=== PATIENT | male | born 1995 | race Caucasian/White ===

== ENCOUNTER 2020-03-16 10:32 | Emergency (ER) | payer BC ==
--- NOTE | 2020-03-16 11:01 | ERPHSYRPT ---
- History of Present Illness Time Seen by Provider: 03/16/20 10:48 Source: patient, police Exam Limitations: no limitations Patient Subjective Stated Complaint: Medical Clearance for skilled nursing. Triage Nursing Assessment: Patient ambulated back to ED and transferred self to bed. Patient A+O X3. Patient's skin pink, warm and dry. Patient brought to ED via police for medical clearance. Police state patient's temp upon entering skilled nursing was 101.0 temporal and patient could not be accepted without medical clearance. Patient denies pain or discomfort. Patient denies being under influence of drugs or alcohol. Physician History: 25 yo wm arrested for domestic dispute presented w a fever at skilled nursing per temperal scanner. Pt denies cough/ST/N/V/D/coryza/otalgia/MARTINEZ/abdominal pain/dysuria/ hematuria. He was afebrile upon ER presentation. Timing/Duration: today Fever Severity: gone Fever Therapy [employer]: none Associated Symptoms: denies symptoms Allergies/Adverse Reactions: No Known Drug Allergies Allergy (Unverified 03/16/20 10:36) Home Medications: No Reportable Medications [No Reported Medications] 03/16/20 [History] Hx Influenza Vaccination/Date Given: No Hx Pneumococcal Vaccination/Date Given: No Immunizations Up to Date: Yes Travel Risk - International Travel Have you traveled outside of the country in past 3 weeks: No Have you or anyone close to you been diagnosed with or: No Do your reside in a community with a known COVID-19 case?: No - Coronavirus Screening Has patient experienced Coronavirus symptoms: No - Review of Systems Constitutional: No Symptoms Eyes: No Symptoms Ears, Nose, & Throat: No Symptoms Respiratory: No Symptoms Cardiac: No Symptoms Abdominal/Gastrointestinal: No Symptoms Genitourinary Symptoms: No Symptoms Musculoskeletal: No Symptoms Skin: No Symptoms Neurological: No Symptoms Psychological: No Symptoms Endocrine: No Symptoms Hematologic/Lymphatic: No Symptoms Immunological/Allergic: No Symptoms - Past Medical History Pertinent Past Medical History: No Neurological History: No Pertinent History ENT History: No Pertinent History Cardiac History: No Pertinent History Respiratory History: No Pertinent History Endocrine Medical History: No Pertinent History Musculoskeletal History: No Pertinent History GI Medical History: No Pertinent History History: No Pertinent History Psycho-Social History: No Pertinent History Male Reproductive Disorders: No Pertinent History - Past Surgical History Past Surgical History: No Neuro Surgical History: No Pertinent History Cardiac: No Pertinent History Respiratory: No Pertinent History Gastrointestinal: No Pertinent History Genitourinary: No Pertinent History Musculoskeletal: No Pertinent History Male Surgical History: No Pertinent History - Social History Smoking Status: Never smoker Exposure to second hand smoke: Yes Drug Use: none Patient Lives Alone: Yes Significant Family History: no pertinent family hx - Nursing Vital Signs Nursing Vital Signs: Initial Vital Signs Temperature 99.0 F 03/16/20 10:37 Pulse Rate 104 H 03/16/20 10:37 Respiratory Rate 18 03/16/20 10:37 Blood Pressure 122/84 03/16/20 10:37 O2 Sat by Pulse Oximetry 97 03/16/20 10:37 Pain Scale Pain Intensity 0 - Physical Exam General Appearance: no apparent distress Eye Exam: PERRL/EOMI, eyes nml inspection ENT Exam: normal ENT inspection, no apparent trauma, hearing grossly normal, TMs normal, pharynx normal, No nasal congestion, No nasal drainage Neck Exam: normal inspection, non-tender, supple, full range of motion, trachea midline Respiratory Exam: normal breath sounds, lungs clear, no respiratory distress, no accessory muscle use Cardiovascular/Chest Exam: tachycardia Gastrointestinal/Abdominal Exam: soft, non tender, no distention, no mass, no guarding, no ecchymosis, no organomegaly, no pulsatile mass, normal bowel sounds Rectal Exam: deferred Extremity Exam: non-tender, normal range of motion, normal inspection, normal capillary refill Neurologic Exam: alert, oriented x 3, cooperative, film color tester II-XII nml as tested, normal mood/affect, nml cerebellar function, nml station & gait, sensation nml, motor deficits Skin Exam: normal color, warm, dry Lymphatic: No adenopathy, No axilla node tender (L) SpO2 Interpretation: normal SpO2: 97 O2 Delivery: Room Air - Course Nursing assessment & vital signs reviewed: Yes Ordered Tests: Active Orders 24 hr Category Date Time Status CHEST 2 VIEWS (PA AND LAT) Stat Exams 03/16/20 10:49 Completed CBC W DIFF Stat Lab 03/16/20 11:00 Completed CULTURE,URINE Stat Lab 03/16/20 10:52 Received UA W/RFX UR CULTURE Stat Lab 03/16/20 10:52 Completed Medication Summary Discontinued Medications Generic Name Dose Route Start Last Admin Trade Name Freq PRN Reason Stop Dose Admin Penicillin G Benzathine 1.2 mu 03/16/20 12:03 03/16/20 12:06 Bicillin L-A 1.2 Mu/2ml Syringe IM 03/16/20 12:04 1.2 mu STAT ONE Administration Penicillin G Benzathine Confirm 03/16/20 12:04 Bicillin L-A 1.2 Mu/2ml Syringe Administered 03/16/20 12:05 Dose 1.2 mu IM .STK-MED ONE Lab/Rad Data: Laboratory Result Diagrams 03/16/20 11:00 Laboratory Results 03/16/20 03/16/20 03/16/20 Range/Units 11:00 11:00 10:52 WBC 12.9 H (4.0-10.5) K/mm3 RBC 5.49 (4.1-5.6) M/mm3 Hgb 16.8 (12.5-18.0) gm/dl Hct 49.2 (42-50) % MCV 89.6 (78-100) fl MCH 30.6 (26-32) pg MCHC 34.1 (32-36) g/dl RDW 13.0 (11.5-14.0) % Plt Count 277 (150-450) K/mm3 MPV 9.7 (7.5-11.0) fl Gran % 85.0 H (36.0-66.0) % Eos # (Auto) 0.10 (0-0.5) Absolute Lymphs (auto) 1.09 (1.0-4.6) Absolute Monos (auto) 0.72 (0.0-1.3) Lymphocytes % 8.4 L (24.0-44.0) % Monocytes % 5.6 (0.0-12.0) % Eosinophils % 0.8 (0.00-5.0) % Basophils % 0.2 (0.0-0.4) % Absolute Granulocytes 10.98 H (1.4-6.9) Basophils # 0.02 (0-0.4) Urine Color ALESSANDRO (YELLOW) Urine Appearance SLIGHTLY CLOUDY (CLEAR) Urine pH 6.0 (5-6) Ur Specific [place] 1.031 (1.005-1.025) Urine Protein 30 (Negative) Urine Ketones NEGATIVE (NEGATIVE) Urine Blood NEGATIVE (0-5) Ivan/ul Urine Nitrite NEGATIVE (NEGATIVE) Urine Bilirubin SMALL (NEGATIVE) Urine Urobilinogen 4 (0-1) mg/dL Ur Leukocyte Esterase NEGATIVE (NEGATIVE) Urine WBC (Auto) 3-5 (0-5) /HPF Urine RBC (Auto) 3-5 (0-2) /HPF U Epithel Cells (Auto) NONE (FEW) /HPF Urine Bacteria (Auto) FEW (NEGATIVE) /HPF Granular Casts (Auto) 5-10 (NEGATIVE) /LPF Urine Mucus (Auto) MANY (NEGATIVE) /HPF Urine Culture Reflexed YES (NO) Urine Glucose NEGATIVE (NEGATIVE) mg/dL Influenza Type A Ag NEGATIVE (NEGATIVE) Influenza Type B Ag NEGATIVE (NEGATIVE) RSV (PCR) NEGATIVE (Negative) Group A Strep Antibody DETECTED (NEGATIVE) - Progress Progress Note: 03/16/20 12:10 Pt given 1.2 MU IM Silva 03/16/20 12:17 Pt given Rx for BactrimDS po bid x3 days Counseled pt/family regarding: lab results, diagnosis, need for follow-up, rad results - Departure Departure Disposition: Home, Mcfp/Alf Clinical Impression: Strep pharyngitis Urinary tract infection Qualifiers: Urinary tract infection type: acute cystitis Condition: Good Critical Care Time: No Referrals: DOCTOR,NO FAMILY [Primary Care Provider] - Instructions: Sore Throat, Adult (DC), Urinary Tract Infection, Adult (DC), Strep Throat (DC) Additional Instructions: Motrin/Tylenol for temperature greater than 100.5/Fluids/Follow up with family MD if no improvement
[2020-03-16 11:13] LABS: Absolute Neutrophil Ct (ANC) 10.98 (1.4-6.9); BASOPHIL % 0.2 % (0.0-0.4); Basophil (Absolute #) 0.02 (0-0.4); Eosinophil % 0.8 % (0.00-5.0); Hematocrit 49.2 % (42-50); Hemoglobin 16.8 gm/dl (12.5-18.0); Lymphocyte (Absolute #) 1.09 (1.0-4.6); Lymphocytes % 8.4 % (24.0-44.0); Mean Cell Volume 89.6 fl (78-100); Mean Corpuscular Hemoglobin 30.6 pg (26-32); Mean Corpuscular Hgb Concent. 34.1 g/dl (32-36); Mean Platelet Volume 9.7 fl (7.5-11.0); Monocyte (Absolute #) 0.72 (0.0-1.3); Monocytes % 5.6 % (0.0-12.0); Platelet Count 277 K/mm3 (150-450); Red Blood Count 5.49 M/mm3 (4.1-5.6); White Blood Count 12.9 K/mm3 (4.0-10.5)
[2020-03-16 11:18] LABS: Appearance SLIGHTLY CLOUDY (CLEAR); Bacteria FEW /HPF (NEGATIVE); Bilirubin SMALL (NEGATIVE); Blood NEGATIVE Ery/ul (0-5); Glucose NEGATIVE (NEGATIVE); Ketones NEGATIVE (NEGATIVE); Leukocyte Esterase NEGATIVE (NEGATIVE); Mucus MANY /HPF (NEGATIVE); Nitrite NEGATIVE (NEGATIVE); Protein,Urine Dip 30 (Negative); Specific Gravity 1.031 (1.005-1.025); Urobilinogen 4 mg/dL (0-1)
--- NOTE | 2020-03-16 11:24 | XRAY ---
Indication: Long-Term clearance. Comparison: None PA/lateral chest demonstrates normal heart, lungs, and bony thorax.
[2020-03-16 11:56] LABS: INFLUENZA A NEGATIVE (NEGATIVE); INFLUENZA B NEGATIVE (NEGATIVE); RESPIRATORY SYNCTIAL VIRUS NEGATIVE (Negative)
[2020-03-16] MEDS ORDERED: Bicillin L-A 1.2 Mu/2ML SYRINGE IM ONE ×2 (12:03→12:04)
[2020-03-16 12:10] VITALS: BP 130/81; PULSE 84; O2SAT 97
== END 2020-03-16 12:16 | disposition home or self-care (01) ==
LOC: ED 10:32
DX: J02.0 Streptococcal pharyngitis (principal); Z02.89 Encounter for other administrative examinations; N39.0 Urinary tract infection, site not specified
CPT/HCPCS: 36415; 71046; 81001; 85025; 87086; 87631; 87651; 96372; 99284; J0561